=== PATIENT | male | born 1975 | race Caucasian/White ===

== ENCOUNTER 2021-03-21 18:06 | Emergency (ER) | payer OTHER ==
[~2021-03-21] VITALS: Ht 167.6 cm; Wt 75.0 kg
[2021-03-21] MEDS ORDERED: MAGNESIUM/ALUMINUM HYDROXIDE/SIMETHICONE 30ML UDC PO ONE (23:15)
[2021-03-21] MEDS ORDERED: ASPIRIN 81MG TABLET PO ONE (23:15)
[2021-03-22 00:09] LABS: BASOPHILS % 0.4 % (0.0-2.0); EOSINOPHILS % 2.3 % (0.0-5.0); HEMATOCRIT. 44.4 % (42.0-52.0); HEMOGLOBIN. 15.2 g/dL (14.0-18.0); LYMPHOCYTES % 28.6 % (20.0-50.0); MEAN CORPUSCULAR HEMOGLOBIN 29.9 pg (28.0-32.0); MEAN CORPUSCULAR VOLUME 87.4 fL (80.0-94.0); MEAN PLATELET VOLUME 7.5 fl (7.4-10.4); MONOCYTES % 6.4 % (2.0-8.0); NEUTROPHILS % 62.3 % (40.0-76.0); PLATELET 225 x1000/uL (130-400); RED BLOOD CELL COUNT 5.08 mill/uL (4.7-6.1); RED CELL DISTRIBUTION WIDTH 13.3 % (11.6-14.6)
[2021-03-22 00:13] LABS: CHLORIDE 108 mEq/L (98-107)
[2021-03-22 04:54] VITALS: BP 126/86
== END 2021-03-22 04:56 | disposition home or self-care (01) ==
LOC: ER 18:06
DX: I20.9 Angina pectoris, unspecified (principal)
CPT/HCPCS: 36415; 71045; 80053; 84484; 85025; 85379; 93005; 99285; Z7610